=== PATIENT | male | born 1955 | race Caucasian/White ===

== ENCOUNTER → 2023-06-12 07:51 | Outpatient (REF) | payer MEDICARE, OTHER, SELFPAY ==
[2023-06-12 10:10] LABS: ALT (SGPT) 28 U/L (0-50); AST (SGOT) 29 U/L (17-59); Albumin 3.9 g/dl (3.5-5.0); Alkaline Phosphatase 77 U/L (38-126); Blood Urea Nitrogen 23 mg/dl (9-20); Calcium 9.9 mg/dl (8.4-10.2); Carbon Dioxide 25 mmol/L (22-30); Chloride 103 mmol/L (98-107); Glucose 174 mg/dl (70-99); HDL Cholesterol 41 mg/dl; LDL Cholesterol, Calculated 60 mg/dl; Potassium 4.8 mmol/L (3.5-5.1); Sodium 140 mmol/L (135-145); Total Bilirubin 0.7 mg/dl (0.2-1.3); Total Cholesterol 126 mg/dl (50-199); Total Protein 6.4 g/dl (6.3-8.2); Triglyceride 129 mg/dl (10-149); Very Low Density Lipoprotein 25 mg/dl (0-30); eGFR > 60.00
[2023-06-12 10:27] LABS: Microalbumin, Random Urine 3.9 mg/dl (0.6-1.7); Microalbumin/creatinine Ratio 45.1 mg/g
[2023-06-12 12:40] LABS: Glycohemoglobin (HgbA1c) 10.8 % (4.0-5.6)
== END ==
LOC: HWLAB 07:51
PROVIDERS: ATTENDING PHYSICIAN Nurse Practitioner Family; FAMILY PHYSICIAN Family Medicine
DX: E11.65 Type 2 diabetes mellitus with hyperglycemia (principal)
CPT/HCPCS: 36415; 80053; 80061; 82043; 82570; 83036

== ENCOUNTER → 2023-06-18 15:41 | Outpatient (REF) | payer MEDICARE, OTHER, SELFPAY ==
[2023-06-18 16:13] LABS: Urine Albumin Negative (Neg - Trace); Urine Bilirubin Negative (Negative); Urine Character Clear (Clear); Urine Color Yellow; Urine Glucose 2+ (Negative); Urine Ketone Negative (Negative); Urine Leukocyte Negative (Negative); Urine Nitrite Negative (Negative); Urine Occult Blood Negative (Negative); Urine Urobilinogen Negative (Neg - 1+)
== END ==
LOC: CLAB 15:41
PROVIDERS: ATTENDING PHYSICIAN Urology
DX: N39.0 Urinary tract infection, site not specified (principal)
CPT/HCPCS: 81003; 87086

== ENCOUNTER → 2023-09-15 06:40 | Outpatient (REF) | payer MEDICARE, OTHER, SELFPAY ==
[2023-09-15 09:17] LABS: Hematocrit 38.9 % (39.0-52.0); Hemoglobin 12.6 g/dL (13.0-18.0); Mean Corp Hgb Conc. 32.4 g/dL (33.0-37.0); Mean Corpuscular Volume 77.2 fL (80.0-94.0); Platelet Count 194 10^3/uL (130-400); Red Blood Cell Count 5.04 10^6/uL (4.70-6.10); Red Cell Dist. Width 15.8 % (11.5-14.5); White Blood Cell Count 6.4 10^3/uL (4.8-10.8)
[2023-09-15 09:27] LABS: ALT (SGPT) 21 U/L (0-50); AST (SGOT) 23 U/L (17-59); Albumin 3.9 g/dl (3.5-5.0); Alkaline Phosphatase 65 U/L (38-126); Blood Urea Nitrogen 29 mg/dl (9-20); Carbon Dioxide 25 mmol/L (22-30); Chloride 107 mmol/L (98-107); Glucose 110 mg/dl (70-99); HDL Cholesterol 44 mg/dl; LDL Cholesterol, Calculated 57 mg/dl; Potassium 4.8 mmol/L (3.5-5.1); Sodium 141 mmol/L (135-145); Total Bilirubin 0.6 mg/dl (0.2-1.3); Total Cholesterol 118 mg/dl (50-199); Total Protein 6.5 g/dl (6.3-8.2); Triglyceride 87 mg/dl (10-149); Very Low Density Lipoprotein 17 mg/dl (0-30); eGFR > 60.00
[2023-09-15 10:09] LABS: Glycohemoglobin (HgbA1c) 8.4 % (4.0-5.6)
== END ==
LOC: HWRCS 06:40
PROVIDERS: ATTENDING PHYSICIAN Internal Medicine Cardiovascular Disease; FAMILY PHYSICIAN Family Medicine; REFERRING PHYSICIAN Physician Assistant
DX: I10 Essential (primary) hypertension (principal); I42.9 Cardiomyopathy, unspecified; E11.65 Type 2 diabetes mellitus with hyperglycemia; E11.9 Type 2 diabetes mellitus without complications
CPT/HCPCS: 36415; 80053; 80061; 83036; 85027; 93306

== ENCOUNTER 2023-10-24 20:38 | Emergency (ER) | payer MEDICARE, OTHER, SELFPAY ==
[2023-10-24 20:39] VITALS: BP 109/58; BMI 27.2
[2023-10-24 20:49] VITALS: BP 124/56
[2023-10-24 21:00] VITALS: BP 106/52
[2023-10-24 21:09] LABS: % Basophils 0.3 % (0-2); % Immature Granulocytes 0.3 % (0-0.5); % Lymphocytes 17.1 % (20.5-51.1); % Monocytes 7.1 % (1.7-9.3); % Neutrophils 75.2 % (42.2-75.2); Absolute Lymphocytes 1.9 10^3/uL (1.2-3.4); Absolute Monocytes 0.8 10^3/uL (0.1-0.6); Absolute Neutrophils 8.4 10^3/uL (1.4-6.5); Hematocrit 37.1 % (39.0-52.0); Hemoglobin 12.5 g/dL (13.0-18.0); Mean Corp Hgb Conc. 33.7 g/dL (33.0-37.0); Mean Corpuscular Volume 74.2 fL (80.0-94.0); Mean Platelet Volume 11.2 fL (7.4-10.4); Nucleated Red Blood Cells % 0 % (-); Platelet Count 174 10^3/uL (130-400); Red Cell Dist. Width 15.7 % (11.5-14.5); White Blood Cell Count 11.1 10^3/uL (4.8-10.8)
--- NOTE | 2023-10-24 21:12 | ED.GENMED ---
History of Present Illness
General
Chief Complaint: Fainting/Passed Out
Time Seen by Provider: 10/24/23 21:11
History of Present Illness
History of Present Illness:
HPI: Patient passed out approximately 2 and half hours ago. He was just sitting on the chair watching until his game suddenly had a change in his vision. He tried to stand up and then collapsed. He fell onto his left buttock region. He does not
think that he struck his head but is not certain. He feels weak in both lower extremities. He did have some urinary incontinence around the time this happened but no other seizure activity. He states he has been told that he has 'orthostatic
hypotension' in the past. He states he has not been drinking much fluid.
EXAM:
GENERAL: The patient appears somewhat generally weak
HEENT: Moist oral mucosa
CARDIOVASCULAR: No murmurs, normal heart rate, regular rhythm, No chest wall tenderness
PULMONARY: No respiratory distress, breath sounds are clear and equal
ABDOMEN: Soft with no peritoneal signs, no tenderness
NEUROLOGIC: Decreased strength in both lower extremities, no coordination deficits
PSYCHIATRIC: Appropriate mental status, normal insight and judgement
EXTREMITIES: Tenderness with pelvic squeeze on the left, there is no significant pain with rotation at the left, there is pain with palpation of the ischial tuberosity on the
SKIN: No rash, no lesions
TIME OF INITIAL ENCOUNTER: 9:15 PM
NUMBER AND COMPLEXITY OF PROBLEMS ADDRESSED AT THE ENCOUNTER
� Chronic conditions affecting care: High blood pressure, hyperlipidemia, left bundle branch block
� Acute Exacerbation and/or Progression of Chronic Illness: This is an acute problem
� Differential Diagnosis includes: Dysrhythmia, infection, dehydration, anemia, hypoglycemia, hypotension, ANKIT
AMOUNT AND/OR COMPLEXITY OF DATA TO BE REVIEWED AND ANALYZED
� I performed an independent evaluation of and my interpretation is:
EKG: Sinus 74, left bundle branch block with associated ST abnormality without significant change from 06/09/2022 however at that time he had more significant ventricular ectopy
CT: I personally viewed CT imaging of the brain and the pelvis�no clear evidence for acute traumatic abnormality. The patient has known abnormality of the prostate/bladder and will be following up with urology.
X-rays:
Laboratory Studies: White count slightly high at 11.1, bicarb only 16, creatinine is 1.9, troponin less than 0.012
Other:
� Review of other/old records: I reviewed old records, old records show baseline creatinine around 1.1
� Clinical information was obtained by an independent historian: I spoke to at bedside
� Prescriptions/Medications Considered but not given:
� Further testing considered but not performed: Offered/considered admission�see below
RISK OF COMPLICATIONS AND/OR MORBIDITY OR MORTALITY OF PATIENT MANAGEMENT
� Social determinants of health affecting care: Lives at home
� Discussion with other providers:
� Escalation of care including admission/observation vs risk of discharge considered: The patient has a greater than 50% increase in his creatinine. He generally feels weak and had an unexplained syncopal event while sitting and
then fell after he stood up. We did give IV fluids. His left bundle branch block is chronic. I strongly considered/offered admission to the hospital given the abnormality with ANKIT along with low bicarb. The patient was given a liter of fluid.
He feels markedly improved on reassessment at 10:45 PM. He strongly prefers outpatient management. He has had no dysrhythmia while in the ED. He has a chronic left bundle branch block. I encouraged him to hold the lisinopril for the next couple
of days given the ANKIT and follow-up with PMD. I also told patient to have repeat BMP this coming week.
Past History
Past History
ED Past Medical History: HTN, Hypercholesterolemia, NIDDM and Other (recurrent pancreatitis)
ED Past Surgical History: Urological (TURP)
Social History
Tobacco: Non-smoker
Alcohol: Occasional
Drug: None
Personal:
Living: with family
Employment: Employed
Family History
Family History: Other
Phy Exam
Physical Exam
Physical Exam:
See HPI
Course
Orders/Labs/Results
Orders:
Orders
10/24/23 21:02
Electrocardiogram (*1) Urgent
Reason for Study: Syncope
EKG- Treatment ONCE
10/24/23 21:03
Complete Blood Count/With Diff Urgent
Comprehensive Metabolic Panel Urgent
Troponin I Urgent
10/24/23 21:18
CT Head W/o Iv Contrast Urgent
Comment:
Reason For Exam: vision change syncope trauma
CT Pelvis W/o Iv Contrast Urgent
Comment:
Reason For Exam: trauma, L pelvic / buttock pain
10/24/23 21:21
Electrocardiogram (*1) Urgent
Reason for Study: Syncope
EKG- Treatment ONCE
10/24/23 22:01
Urinalysis Reflex To Culture Urgent
Date Specimen was Collected: 10/24/23
Time Specimen was Collected: 21:59
Abnormal Lab Results
10/24/23 10/24/23
21:03 22:01
WBC 11.1 H 10^3/uL
(4.8-10.8)
Hgb 12.5 L g/dL
(13.0-18.0)
Hct 37.1 L %
(39.0-52.0)
MCV 74.2 L fL
(80.0-94.0)
MCH 25.0 L pg
(27.0-31.0)
RDW 15.7 H %
(11.5-14.5)
MPV 11.2 H fL
(7.4-10.4)
Absolute Neuts (auto) 8.4 H 10^3/uL
(1.4-6.5)
Absolute Monos (auto) 0.8 H 10^3/uL
(0.1-0.6)
Lymphocytes % 17.1 L %
(20.5-51.1)
Potassium 5.2 H mmol/L
(3.5-5.1)
Carbon Dioxide 16 L mmol/L
(22-30)
BUN 31 H mg/dl
(9-20)
Creatinine 1.9 H mg/dL
(0.7-1.3)
Glucose 134 H mg/dl
(70-99)
Calcium 10.3 H mg/dl
(8.4-10.2)
Urine Ketones Trace A
(Negative)
10/24/23 21:03
10/24/23 21:03
Vital Signs
Initial and Last Documented VS:
Initial Vital Signs
Temp Pulse Resp BP Pulse Ox
97.6 F 77 16 109/58 100
10/24/23 20:39 10/24/23 20:39 10/24/23 20:39 10/24/23 20:39 10/24/23 20:39
Last Documented Vital Signs
Temp Pulse Resp BP Pulse Ox
97.6 F 71 18 120/66 98
10/24/23 20:39 10/24/23 22:26 10/24/23 22:15 10/24/23 22:26 10/24/23 22:26
*Critical Care Note
Total Time (30-74mins, 75-104mins- exclusive of procedures): Not Applicable
ED Attending Note
-
Portions of this chart may have been created with voice recognition software.� Occasional wrong word or��sound alike� substitutions may have occurred due to the inherent limitations of voice recognition software.
Discharge Plan
Departure
Patient Disposition: Home (Routine Discharge)
Date of Disposition: 10/24/23
Time of Disposition: 22:45
Patient with high blood pressure during this ER visit?: No
Discharge Problem:
ANKIT (acute kidney injury)
Prescriptions:
No Action
repaglinide [Prandin] 2 mg Tablet
2 mg PO TID
glyburide 5 mg Tablet
10 mg PO DAILY
glyburide 5 mg Tablet
5 mg PO QPM
lisinopril 20 mg Tablet
20 mg PO QPM
metformin 1,000 mg Tablet
1,000 mg PO BID
Levemir FlexPen
15 units SC QPM
multivitamin [Multi-Daily] Tablet
1 tab PO DAILY
pantoprazole 40 mg Tablet,Delayed Release (Dr/Ec)
40 mg PO DAILY
coenzyme Q10 [CoQ-10] 100 mg Capsule
200 mg PO DAILY
rosuvastatin 20 mg Tablet
20 mg PO QPM
aspirin 81 mg Capsule
81 mg PO DAILY
Kaopectate (attapulgite)
30 ml PO PRN PRN (Reason: diarrhea)
Activity Restrictions/Additional Instructions:
Your kidney function is abnormal. The creatinine tonight was 1.9 (normal he should be 1.3 or lower). The bicarb is only 16 normally should be between 22 and 30). He also had a small amount of ketones in your urine. These findings strongly
suggest dehydration. We gave you a liter of IV fluids. I recommend that you hold the lisinopril for the next couple of days and follow-up with PMD for repeat BMP testing. I encourage increased fluid intake at home.
Interventions
Interventions:
*Risk Screen - Suicide Last Done: 10/24/23 20:39
*General Assessment Last Done: 10/24/23 21:00
*Neglect/Abuse Screening Last Done: 10/24/23 20:39
*ED COVID-19 Vaccine History Last Done: 10/24/23 21:00
ED- Cardiac Assessment Last Done: 10/24/23 22:24
ED- Neurological Assessment Last Done: 10/24/23 22:24
Discharge Date and Time
Print Language: MONGOLIAN
[2023-10-24 21:28] LABS: ALT (SGPT) 22 U/L (0-50); AST (SGOT) 24 U/L (17-59); Albumin 4.4 g/dl (3.5-5.0); Alkaline Phosphatase 68 U/L (38-126); Blood Urea Nitrogen 31 mg/dl (9-20); Calcium 10.3 mg/dl (8.4-10.2); Carbon Dioxide 16 mmol/L (22-30); Chloride 105 mmol/L (98-107); Estimated Creatinine Clearance 39 ml/min; Glucose 134 mg/dl (70-99); Potassium 5.2 mmol/L (3.5-5.1); Sodium 139 mmol/L (135-145); Total Bilirubin 0.5 mg/dl (0.2-1.3); Total Protein 6.6 g/dl (6.3-8.2); eGFR 37.48
[2023-10-24 21:32] LABS: Troponin I < 0.012 ng/ml
[2023-10-24 22:00] VITALS: BP 120/66
[2023-10-24 22:07] LABS: Urine Albumin Negative (Neg - Trace); Urine Bilirubin Negative (Negative); Urine Character Clear (Clear); Urine Color Yellow; Urine Glucose Negative (Negative); Urine Ketone Trace (Negative); Urine Leukocyte Negative (Negative); Urine Nitrite Negative (Negative); Urine Occult Blood Negative (Negative); Urine Urobilinogen Negative (Neg - 1+)
[2023-10-24 22:26] VITALS: BP 120/66
== END 2023-10-24 22:57 | disposition home or self-care (01) ==
LOC: EMR 20:38
PROVIDERS: EMERGENCY PHYSICIAN Emergency Medicine; FAMILY PHYSICIAN Family Medicine
DX: N17.9 Acute kidney failure, unspecified (principal); R55 Syncope and collapse; I10 Essential (primary) hypertension; E78.00 Pure hypercholesterolemia, unspecified; E11.9 Type 2 diabetes mellitus without complications; Z90.79 Acquired absence of other genital organ(s)
CPT/HCPCS: 99284; 70450; 72192; 80053; 81003; 84484; 85025; 93005

== ENCOUNTER → 2023-11-11 06:47 | Outpatient (REF) | payer MEDICARE, OTHER, SELFPAY ==
[2023-11-11 10:22] LABS: PSA, Total - Diagnostic 2.85 ng/ml (0.0-4.0)
== END ==
LOC: HWLAB 06:47
PROVIDERS: ATTENDING PHYSICIAN Urology; FAMILY PHYSICIAN Family Medicine
DX: R97.20 Elevated prostate specific antigen [PSA] (principal)
CPT/HCPCS: 36415; 84153

== ENCOUNTER → 2023-12-21 09:30 | Outpatient (REF) | payer MEDICARE, OTHER, SELFPAY ==
[2023-12-21 12:38] LABS: Blood Urea Nitrogen 24 mg/dl (9-20); Calcium 9.7 mg/dl (8.4-10.2); Carbon Dioxide 29 mmol/L (22-30); Chloride 103 mmol/L (98-107); Glucose 147 mg/dl (70-99); Magnesium 1.7 mg/dl (1.6-2.3); Potassium 5.1 mmol/L (3.5-5.1); Sodium 141 mmol/L (135-145); eGFR > 60.00
== END ==
LOC: HWLAB 09:30
PROVIDERS: ATTENDING PHYSICIAN Internal Medicine Cardiovascular Disease; FAMILY PHYSICIAN Family Medicine
DX: I44.7 Left bundle-branch block, unspecified (principal)
CPT/HCPCS: 36415; 80048; 83735

== ENCOUNTER → 2024-01-12 06:55 | Outpatient (REF) | payer MEDICARE, OTHER, SELFPAY ==
[2024-01-12 09:34] LABS: Hematocrit 38.5 % (39.0-52.0); Hemoglobin 12.2 g/dL (13.0-18.0); Mean Corp Hgb Conc. 31.7 g/dL (33.0-37.0); Mean Corpuscular Hgb 23.8 pg (27.0-31.0); Mean Platelet Volume 11.1 fL (7.4-10.4); Platelet Count 164 10^3/uL (130-400); Red Blood Cell Count 5.13 10^6/uL (4.70-6.10); Red Cell Dist. Width 15.2 % (11.5-14.5); White Blood Cell Count 6.6 10^3/uL (4.8-10.8)
[2024-01-12 09:50] LABS: ALT (SGPT) 23 U/L (0-50); AST (SGOT) 24 U/L (17-59); Albumin 4.2 g/dl (3.5-5.0); Alkaline Phosphatase 59 U/L (38-126); Blood Urea Nitrogen 28 mg/dl (9-20); Calcium 9.9 mg/dl (8.4-10.2); Carbon Dioxide 25 mmol/L (22-30); Chloride 105 mmol/L (98-107); Glucose 157 mg/dl (70-99); HDL Cholesterol 48 mg/dl; LDL Cholesterol, Calculated 62 mg/dl; Potassium 5.5 mmol/L (3.5-5.1); Sodium 143 mmol/L (135-145); Total Bilirubin 0.5 mg/dl (0.2-1.3); Total Cholesterol 125 mg/dl (50-199); Total Protein 6.4 g/dl (6.3-8.2); Triglyceride 78 mg/dl (10-149); Very Low Density Lipoprotein 15 mg/dl (0-30); eGFR > 60.00
[2024-01-12 11:14] LABS: Glycohemoglobin (HgbA1c) 6.8 % (4.0-5.6)
== END ==
LOC: HWLAB 06:55
PROVIDERS: ATTENDING PHYSICIAN Physician Assistant; FAMILY PHYSICIAN Family Medicine
DX: E11.65 Type 2 diabetes mellitus with hyperglycemia (principal)
CPT/HCPCS: 36415; 80053; 80061; 83036; 85027

== ENCOUNTER → 2024-03-01 07:04 | Outpatient (REF) | payer MEDICARE, OTHER, SELFPAY ==
[2024-03-01 10:35] LABS: PSA, Total - Diagnostic 2.38 ng/ml (0.0-4.0)
== END ==
LOC: HWLAB 07:04
PROVIDERS: ATTENDING PHYSICIAN Urology; FAMILY PHYSICIAN Family Medicine
DX: R31.0 Gross hematuria (principal); N39.0 Urinary tract infection, site not specified
CPT/HCPCS: 36415; 84153

== ENCOUNTER 2024-05-19 06:11 | Day surgery (SDC) | payer MEDICARE, OTHER, SELFPAY ==
[2024-05-02 13:33] VITALS: BMI 27.8
[2024-05-19] VITALS (20 sets, daily range): BP systolic 116–164; BP diastolic 59–79; BMI 27.8
[2024-05-19 06:49] LABS: Glucose - Point of Care 190 mg/dl (70-99)
[2024-05-19] MEDS: NORMOSOL-R/PLASMALYTE-A 1000 IV (06:57)
[2024-05-19 11:51] LABS: Glucose - Point of Care 239 mg/dl (70-99)
--- NOTE | 2024-05-19 11:51 | W.IMMPOSTOP ---
Surgical Immed Post Op Note
-
Primary Surgeon: Clarkfer
Assisting Surgeon: none
Pre-op Diagnosis: BPH
Post-op Diagnosis: same
Procedure Performed: Robotic simple prostatectomy
Anesthesia Type: general
Specimen / Cultures: adenoma
Estimated Blood Loss: 150cc
Complications: none
Operative Findings: -
[2024-05-19] MEDS: DILAUDID 0.5 MG IV ×2 (11:59→12:52)
[2024-05-19] MEDS: NOVOLOG vial 2 UNITS SC ×2 (12:01→14:05)
[2024-05-19] MEDS: TORADOL 15 MG IV ×3 (12:32→23:08)
[2024-05-19 12:50] LABS: Hematocrit 39.3 % (39.0-52.0); Mean Corp Hgb Conc. 30.5 g/dL (33.0-37.0); Mean Corpuscular Hgb 23.3 pg (27.0-31.0); Mean Corpuscular Volume 76.2 fL (80.0-94.0); Mean Platelet Volume 11.1 fL (7.4-10.4); Platelet Count 152 10^3/uL (130-400); Red Blood Cell Count 5.16 10^6/uL (4.70-6.10); Red Cell Dist. Width 16.3 % (11.5-14.5); White Blood Cell Count 16.1 10^3/uL (4.8-10.8)
[2024-05-19 13:44] LABS: Blood Urea Nitrogen 26 mg/dl (9-20); Calcium 8.5 mg/dl (8.4-10.2); Carbon Dioxide 24 mmol/L (22-30); Chloride 103 mmol/L (98-107); Estimated Creatinine Clearance 67 ml/min; Glucose 261 mg/dl (70-99); Potassium 4.9 mmol/L (3.5-5.1); Sodium 138 mmol/L (135-145); eGFR > 60.00
[2024-05-19 14:01] LABS: Glucose - Point of Care 238 mg/dl (70-99)
--- NOTE | 2024-05-19 15:16 | PTCARENOTE ---
Pt arrived to 2S in bed. CBI infusing per order, pink tinged urine output noted. R most abdominal incision with local erythema and puffy, unchanged per CLINICAL LABORATORY MANAGER. Abdominal incisions C/D/I, glued and ELLIOTT. IVF infusing per order. Pt instructed to ring
for assistance getting OOB, verbalized understanding. Bed locked and in the lowest position, safety maintained. Oriented to room and call bowen.
[2024-05-19] MEDS: NSS 1000 IV ×2 (16:21→23:09)
[2024-05-19 17:04] LABS: Glucose - Point of Care 297 mg/dl (70-99)
[2024-05-19] MEDS: CRESTOR 20 MG PO (17:15)
[2024-05-19] MEDS: ZESTRIL 10 MG PO (17:15)
[2024-05-19] MEDS: NOVOLOG FLEXPEN-MODERATE RESISTANCE SC (17:16)
[2024-05-19] MEDS: SENOKOT 17.2 MG PO (19:48)
[2024-05-19 21:20] LABS: Glucose - Point of Care 271 mg/dl (70-99)
[2024-05-20] MEDS: MORPHINE SULFATE 4 MG IV (00:21)
[2024-05-20 02:53] VITALS: BP 121/71
[2024-05-20] MEDS: TORADOL 15 MG IV (05:16)
[2024-05-20 06:42] LABS: Hematocrit 32.1 % (39.0-52.0); Hemoglobin 10.3 g/dL (13.0-18.0); Mean Corp Hgb Conc. 32.1 g/dL (33.0-37.0); Mean Corpuscular Hgb 23.8 pg (27.0-31.0); Mean Corpuscular Volume 74.3 fL (80.0-94.0); Mean Platelet Volume 11.1 fL (7.4-10.4); Platelet Count 143 10^3/uL (130-400); Red Blood Cell Count 4.32 10^6/uL (4.70-6.10); Red Cell Dist. Width 16.2 % (11.5-14.5); White Blood Cell Count 11.3 10^3/uL (4.8-10.8)
[2024-05-20 06:46] LABS: Blood Urea Nitrogen 26 mg/dl (9-20); Calcium 7.8 mg/dl (8.4-10.2); Carbon Dioxide 25 mmol/L (22-30); Chloride 105 mmol/L (98-107); Estimated Creatinine Clearance 61 ml/min; Glucose 202 mg/dl (70-99); Potassium 4.4 mmol/L (3.5-5.1); Sodium 137 mmol/L (135-145); eGFR > 60.00
[2024-05-20 07:02] VITALS: BP 116/54
[2024-05-20 08:06] LABS: Glucose - Point of Care 192 mg/dl (70-99)
[2024-05-20] MEDS: FLOMAX 0.4 MG PO (08:34)
[2024-05-20] MEDS: PROTONIX 40 MG PO (08:34)
[2024-05-20] MEDS: SENOKOT 17.2 MG PO (08:34)
[2024-05-20] MEDS: NOVOLOG FLEXPEN-MODERATE RESISTANCE 1 UNITS SC (08:34)
[2024-05-20] MEDS: ASPIR LOW (ENTERIC COATED) 81 MG PO (08:34)
[2024-05-20] MEDS: PROSCAR 5 MG PO (08:34)
[2024-05-20] MEDS: LANTUS 0.3 UNITS SC (08:34)
[2024-05-20 09:45] LABS: Glycohemoglobin (HgbA1c) 7.5 % (4.0-5.6)
--- NOTE | 2024-05-20 10:05 | W.PN.URO.CBU ---
Today's Communication / Plan
-
Discharge
Assessment / Plan
-
68M POD 1 s/p Robotic simple prostatectomy
- Urine clear with CBI clamped
- Switch to leg bag
- OOB/Ambulate
- DM diet
- Discharge with clements in place
Diagnosis
-
Date of Service: May 20, 2024
-
Patient Diagnosis: BPH
Post Op Day: 1 s/p Robotic simple prostatectomy
Subjective
-
Pain controlled
Tolerating diet
Not ambulated yet
Objective
-
Vital Signs
Temp Pulse Resp BP Pulse Ox
98.2 F 59 18 116/54 98
05/20/24 07:02 05/20/24 07:02 05/20/24 07:02 05/20/24 07:02 05/20/24 07:02
Intake and Output
05/19/24 05/20/24 05/21/24
06:59 06:59 06:59
Intake Total 4805 / 4805
Output Total 1800 / 1800
Balance 3005 / 3005
Intake:
Oral fluids 2330 / 2330
IV fluids (Total) 2475 / 2475
Normosol 600 / 600
Output:
True Urine Output from CBI 1800 / 1800
Laboratory Results
05/20/24 04:33
05/20/24 04:33
Physical Exam
-
General - well developed, well nourished, no acute distress
Chest - clear bilaterally
Abdomen - soft, non-tender
Clements in place, light pink urine
Skin - warm & dry with no rash
Neuro - AOx3, no motor deficits
Extremities - no clubbing, no cyanosis, no edema
--- NOTE | 2024-05-20 10:50 | CM ---
Met with pt at bedside
Pt reports he lives with his in a 2 story home; 3 steps to enter, 12 steps to 2nd fl
Independent, retired, drives
DME - none
SNF/HH - no past hx
Has ride at discharge
PCP - Lito Rodriguez
Pharm - [facility]
Declined VN
Plan - home no needs
[2024-05-20 11:24] VITALS: BP 140/70
== END 2024-05-20 12:04 | disposition home or self-care (01) ==
LOC: SDS 06:11
PROVIDERS: ATTENDING PHYSICIAN Urology; FAMILY PHYSICIAN Family Medicine
DX: N40.1 Benign prostatic hyperplasia with lower urinary tract symptoms (principal); R33.8 Other retention of urine
CPT/HCPCS: 55867; 88307; 80048; 82962; 83036; 85027; 86900; 86901

== ENCOUNTER → 2024-06-07 07:01 | Outpatient (REF) | payer MEDICARE, OTHER, SELFPAY ==
[2024-06-07 10:16] LABS: Hematocrit 37.2 % (39.0-52.0); Hemoglobin 11.7 g/dL (13.0-18.0); Mean Corp Hgb Conc. 31.5 g/dL (33.0-37.0); Mean Corpuscular Hgb 23.5 pg (27.0-31.0); Mean Corpuscular Volume 74.7 fL (80.0-94.0); Mean Platelet Volume 11.6 fL (7.4-10.4); Platelet Count 223 10^3/uL (130-400); Red Blood Cell Count 4.98 10^6/uL (4.70-6.10); Red Cell Dist. Width 16.1 % (11.5-14.5); White Blood Cell Count 7.9 10^3/uL (4.8-10.8)
[2024-06-07 14:58] LABS: Protein/creatinine Ratio 0.8; Urine Protein 71 mg/dl
[2024-06-07 15:14] LABS: Microalbumin, Random Urine 28.1 mg/dl (0.6-1.7); Microalbumin/creatinine Ratio 312.6 mg/g
[2024-06-07 17:04] LABS: ALT (SGPT) 29 U/L (0-50); AST (SGOT) 22 U/L (17-59); Albumin 4.4 g/dl (3.5-5.0); Alkaline Phosphatase 65 U/L (38-126); Blood Urea Nitrogen 32 mg/dl (9-20); Calcium 9.7 mg/dl (8.4-10.2); Carbon Dioxide 24 mmol/L (22-30); Chloride 103 mmol/L (98-107); Glucose 144 mg/dl (70-99); HDL Cholesterol 39 mg/dl; LDL Cholesterol, Calculated 62 mg/dl; Potassium 4.5 mmol/L (3.5-5.1); Sodium 138 mmol/L (135-145); Total Bilirubin 0.7 mg/dl (0.2-1.3); Total Cholesterol 120 mg/dl (50-199); Total Protein 6.5 g/dl (6.3-8.2); Triglyceride 99 mg/dl (10-149); Very Low Density Lipoprotein 19 mg/dl (0-30); eGFR > 60.00
== END ==
LOC: HWLAB 07:01
PROVIDERS: ATTENDING PHYSICIAN Physician Assistant; FAMILY PHYSICIAN Family Medicine
DX: E11.65 Type 2 diabetes mellitus with hyperglycemia (principal)
CPT/HCPCS: 36415; 80053; 80061; 82043; 82570; 84156; 85027

== ENCOUNTER → 2024-09-16 08:58 | Outpatient (REF) | payer MEDICARE, OTHER, SELFPAY ==
[2024-09-16 12:35] LABS: Hemoglobin 11.6 g/dL (13.0-18.0); Mean Corp Hgb Conc. 30.5 g/dL (33.0-37.0); Mean Corpuscular Hgb 21.7 pg (27.0-31.0); Mean Platelet Volume 11.4 fL (7.4-10.4); Platelet Count 173 10^3/uL (130-400); Red Blood Cell Count 5.35 10^6/uL (4.70-6.10); Red Cell Dist. Width 16.2 % (11.5-14.5)
[2024-09-16 12:53] LABS: ALT (SGPT) 21 U/L (0-50); AST (SGOT) 20 U/L (17-59); Albumin 4.3 g/dl (3.5-5.0); Alkaline Phosphatase 53 U/L (38-126); Blood Urea Nitrogen 28 mg/dl (9-20); Calcium 9.7 mg/dl (8.4-10.2); Carbon Dioxide 26 mmol/L (22-30); Chloride 110 mmol/L (98-107); Glucose 146 mg/dl (70-99); HDL Cholesterol 44 mg/dl; LDL Cholesterol, Calculated 62 mg/dl; Potassium 4.4 mmol/L (3.5-5.1); Sodium 143 mmol/L (135-145); Total Bilirubin 0.7 mg/dl (0.2-1.3); Total Cholesterol 123 mg/dl (50-199); Total Protein 6.8 g/dl (6.3-8.2); Triglyceride 88 mg/dl (10-149); Very Low Density Lipoprotein 17 mg/dl (0-30); eGFR > 60.00
[2024-09-16 13:04] LABS: Protein/creatinine Ratio 0.1; Urine Protein 11 mg/dl
[2024-09-16 13:07] LABS: Glycohemoglobin (HgbA1c) 7.4 % (4.0-5.6)
[2024-09-16 13:08] LABS: Microalbumin, Random Urine 6.7 mg/dl (0.6-1.7); Microalbumin/creatinine Ratio 37.8 mg/g
== END ==
LOC: HWLAB 08:58
PROVIDERS: ATTENDING PHYSICIAN Physician Assistant; FAMILY PHYSICIAN Family Medicine
DX: E11.65 Type 2 diabetes mellitus with hyperglycemia (principal)
CPT/HCPCS: 36415; 80053; 80061; 82043; 82570; 83036; 84156; 85027

== ENCOUNTER → 2024-12-21 06:57 | Outpatient (REF) | payer MEDICARE, OTHER, SELFPAY ==
[2024-12-21 09:44] LABS: Hematocrit 38.4 % (39.0-52.0); Hemoglobin 11.4 g/dL (13.0-18.0); Mean Corp Hgb Conc. 29.7 g/dL (33.0-37.0); Mean Corpuscular Volume 68.8 fL (80.0-94.0); Platelet Count 167 10^3/uL (130-400); Red Cell Dist. Width 19.1 % (11.5-14.5)
[2024-12-21 10:31] LABS: Glycohemoglobin (HgbA1c) 7.5 % (4.0-5.6)
[2024-12-21 10:40] LABS: ALT (SGPT) 24 U/L (0-50); AST (SGOT) 25 U/L (17-59); Albumin 4.4 g/dl (3.5-5.0); Alkaline Phosphatase 56 U/L (38-126); Blood Urea Nitrogen 29 mg/dl (9-20); Calcium 9.4 mg/dl (8.4-10.2); Carbon Dioxide 25 mmol/L (22-30); Chloride 107 mmol/L (98-107); Glucose 131 mg/dl (70-99); Potassium 4.7 mmol/L (3.5-5.1); Sodium 140 mmol/L (135-145); Total Protein 6.7 g/dl (6.3-8.2); eGFR > 60.00
== END ==
LOC: HWLAB 06:57
PROVIDERS: ATTENDING PHYSICIAN Physician Assistant; FAMILY PHYSICIAN Family Medicine
DX: E11.65 Type 2 diabetes mellitus with hyperglycemia (principal)
CPT/HCPCS: 36415; 80053; 83036; 85027

== ENCOUNTER → 2025-03-20 07:32 | Outpatient (REF) | payer MEDICARE, OTHER, SELFPAY ==
[2025-03-20 10:23] LABS: Hematocrit 41.0 % (39.0-52.0); Hemoglobin 11.8 g/dL (13.0-18.0); Mean Corp Hgb Conc. 28.8 g/dL (33.0-37.0); Mean Corpuscular Volume 72.1 fL (80.0-94.0); Nucleated Red Blood Cells % 0 % (-); Platelet Count 157 10^3/uL (130-400); Red Cell Dist. Width 19.9 % (11.5-14.5)
[2025-03-20 10:29] LABS: ALT (SGPT) 22 U/L (0-50); AST (SGOT) 21 U/L (17-59); Albumin 4.3 g/dl (3.5-5.0); Alkaline Phosphatase 54 U/L (38-126); Blood Urea Nitrogen 30 mg/dl (9-20); Calcium 9.6 mg/dl (8.4-10.2); Carbon Dioxide 29 mmol/L (22-30); Chloride 106 mmol/L (98-107); Glucose 147 mg/dl (70-99); Potassium 4.3 mmol/L (3.5-5.1); Sodium 140 mmol/L (135-145); Total Protein 6.9 g/dl (6.3-8.2); eGFR > 60.00
[2025-03-20 10:45] LABS: Glycohemoglobin (HgbA1c) 7.2 % (4.0-5.9)
[2025-03-20 12:07] LABS: Acanthocytes Slight; Anisocytosis 2+; Hypochromasia 1+; Normal RBC Morphology No; Ovalocytes 1+; Polychromasia Slight
[2025-03-22 06:56] LABS: Islet Cell Antibody, IgG <1:4 (<1:4)
== END ==
LOC: REG 07:32
PROVIDERS: ATTENDING PHYSICIAN Physician Assistant; FAMILY PHYSICIAN Family Medicine
DX: E11.65 Type 2 diabetes mellitus with hyperglycemia (principal)
CPT/HCPCS: 36415; 80053; 83036; 85025; 86341